=== PATIENT | male | born 1950 | race African-American/Black ===

== ENCOUNTER 2019-02-05 16:48 | Inpatient (IN) | payer OTHER ==
[~2019-02-05] VITALS: Ht 175.3 cm; Wt 62.6 kg
[2019-02-05 16:49] VITALS: BP 127/79
[2019-02-05 17:09] LABS: BASOPHILS 1.1 % (0.0-2.0); EOSINOPHILS 2.2 % (0.0-3.0); HEMATOCRIT 47.6 % (42.0-52.0); HEMOGLOBIN 15.7 gm/dL (14.0-18.0); LYMPHOCYTES 11.6 % (24.0-44.0); MCH 32.9 pg (26.0-34.0); MCHC 32.9 g/dL (28.0-37.0); MONOCYTES 6.5 % (1.0-8.0); PLATELET COUNT 157 thou/uL (150-400); POLYS 78.6 % (36.0-66.0); RBC 4.76 mil/uL (4.50-6.00); RDW 14.5 % (10.5-14.5); WBC 11.4 thou/uL (4.0-11.0)
[2019-02-05 17:15] LABS: BE(vivo) 2.7 mmol/L (-2 to +3); PCO2 56.1 mmHg (35.0-45.0); PO2 57.4 mmHg (80.0-100.0); pH 7.346 (7.360-7.450); sO2 87.9 % (92.0-98.0)
[2019-02-05 18:17] LABS: ANION GAP 7 mmol/L (7-16); BUN 9 mg/dL (7-18); CALCIUM 9.7 mg/dL (8.5-10.1); CHLORIDE 103 mmol/L (98-107); CO2 30 mmol/L (21-32); GLUCOSE 123 mg/dL (74-106); SODIUM 140 mmol/L (136-145)
[2019-02-05 18:27] LABS: ALBUMIN 3.4 g/dL (3.4-5.0); LIPASE 59 U/L (73-393); SGOT 16 U/L (15-37); SGPT 15 U/L (30-65); TOTAL BILIRUBIN 1.1 mg/dL (<0.1-1.0); TOTAL PROTEIN 7.3 g/dL (6.4-8.2); TROPONIN-I <0.06 ng/mL (<0.06)
[2019-02-05 22:20] VITALS: BP 95/65
[2019-02-05 22:45] VITALS: BP 109/68
[2019-02-05 23:05] VITALS: BP 125/81
[2019-02-06 05:14] VITALS: BP 151/86
[2019-02-06 05:53] LABS: MAGNESIUM 2.1 mg/dL (1.8-2.4); PHOSPHORUS 4.6 mg/dL (2.5-4.9)
--- NOTE | 2019-02-06 06:15 | NUR ---
PATIENTS CARES WERE ASSUMED AFTER A TRANSFER FROM THE ER. PATIENT WAS ASSESSED AND ADMITTED. PATIENT WAS PLACED ON CWAL AND HAS A ZERO SCORE AT THIS TIME. STARTED ON THE EVEN HOUR OF 0400. TO FOLLOW FOR THE DAY SHIFT AT 0800. HOURLY ROUNDING WAS DONE.THE PATIENT HAS BEEN ASLEEP MOST OF HIS TIME HERE. THE BED IS IN A LOW AND LOCKED POSITION AND THE BED ALARM IS ON. ALSO THE PATIENT IS IN OUNI200 CLOSE TO THE NURSING STATION.
[2019-02-06 07:19] VITALS: BP 123/79
--- NOTE | 2019-02-06 07:51 | EKG ---
[place] [id number] [facility] [employer] [place] [address] ELECTROCARDIOGRAM REPORT Name: CHANDRAKANT JI Room #: 361-P ADM IN M.R.#: [id number] ������������������ Admission: 02/05/19 ������������������ Attend Phys: Angel Stanley Discharge: ������������������ Date of : 50 Report #: [id number] ����������������������������������������������������������������� [id number] THIS REPORT FOR: //name// [facility] ED Test Date: 2019-02-05 Test Time: 17:01:32 Pat Name: CHANDRAKANT JI Department: Room: 361 Gender: M Instructional Leader: MIGEL : 1950 Requested By: Beth Saleh Order Number: [id number] MD: Baltazar Sung Measurements Intervals Hana Rate: 115 P: 76 ME: 118 QRS: 42 QRSD: 75 T: 89 QT: 316 QTc: 437 Interpretive Statements Sinus tachycardia Right atrial enlargement Nonspecific ST and T wave abnormality No previous ECG available for comparison Electronically Signed On 02-06-2019 7:51:13 CDT by Baltazar Sung [email or web address] ��������������������������������������������� <ELECTRONICALLY SIGNED> ���������������������������������������� By: Baltazar Sung MD, [facility] ��������������������������������������������� 02/06/19 0751 170 00 Baltazar Sung MD, FACC /EPI
[2019-02-06 08:05] LABS: BE(vivo) 2.2 mmol/L (-2 to +3); PCO2 72.8 mmHg (35.0-45.0); PO2 83.8 mmHg (80.0-100.0); pH 7.261 (7.360-7.450); sO2 94.4 % (92.0-98.0)
--- NOTE | 2019-02-06 10:01 | NUR ---
ASSESSMENT: CM REVIEWED CHART AND MET WITH PATIENT AT THE BEDSIDE. PT WAS ADMITTED WITH COPD EXACERBATION. PT REPORTS HE LIVES IN A HOUSE BY HIMSELF. PT REPORTS NO STEPS TO ENTER OR ONCE INSIDE. PT REPORTS THAT HE AMBULATES INDEPENDENTLY AND IS INDEPENDELT WITH ADLS. PT REPORTS THAT HE DOES NOT WEAR OXYGEN AT HOME BUT STATES HE HAS A HOME NEBULIZER. PT REPORTS THAT FAVIOLA COMES TO HIS HOUSE TO HELP HIM WITH COOKING/CLEANING/CHORES/ERRANDS/BATHING. CM SPOKE WITH FAVIOLA [phone] OR [phone] AND SHE STATES SHE WORKS FOR [employer] AND IS A BENEFIT THROUGH HIS MEDICAID. PT REPORTS HE DOES NOT HAVE HOME HEALTH AT THIS TIME AND HAS NOT BEEN TO SNF. CM DISCUSSED ROLE AND WILL CONTINUE TO FOLLOW TO ASSIST NEEDED.
[2019-02-06 12:47] LABS: URINE BILIRUBIN NEGATIVE (Negative); URINE BLOOD NEGATIVE (Negative); URINE CLARITY CLEAR; URINE COLOR YELLOW; URINE GLUCOSE-RANDOM* NEGATIVE (Negative); URINE KETONES NEGATIVE (Negative); URINE LEUKOCYTES NEGATIVE (Negative); URINE NITRITE NEGATIVE (Negative); URINE PROTEIN (DIPSTICK) NEGATIVE (Negative); URINE SPECIFIC GRAVITY 1.015 (1.005-1.035); URINE UROBILINOGEN 0.2 E.U./dl (0.2-1.0)
[2019-02-06 12:55] LABS: AMP/METHAMP Negative (Negative); BARBITURATES Negative (Negative); BENZODIAZEPINES Negative (Negative); COCAINE Negative (Negative); METHADONE Negative (Negative); OPIATES Negative (Negative); PCP Negative (Negative)
[2019-02-06 13:59] LABS: BE(vivo) 2.8 mmol/L (-2 to +3); HCO3 32.1 mmol/L (22.0-26.0); PO2 98.4 mmHg (80.0-100.0); sO2 96.4 % (92.0-98.0)
[2019-02-06 14:03] LABS: PCO2 70.7 mmHg (35.0-45.0); pH 7.275 (7.360-7.450)
[2019-02-06 16:08] VITALS: BP 111/77
--- NOTE | 2019-02-06 18:38 | NUR ---
PT is A&OX3, pt is on o2 3L/min/nc at most of time, but pt has BIPAP about 2-3 hr for abnormal AGB, pt has SOB with activites, pt's vs are stable, pt has a good dinner, pt denies pain at this time, pt has slowly meeting care plan goals.
[2019-02-06 19:48] VITALS: BP 135/84
[2019-02-07 04:34] VITALS: BP 110/68
--- NOTE | 2019-02-07 05:47 | NUR ---
PT ON BIPAP AT HS. KEPT BIPAP ON UNTIL 0545 WHEN PT REQUESTED SOME COFFEE. PUT PT ON 3l NC AND 02 SATS ARE ABOVE 90. PT UPTO BSC WITH X1 OR HE WILL USE URINAL. FLAT EFFECT WITH SLOW RESPONSES. PT STATES NO PAIN OR N/V. FOLLOWING POC WITH IVPB ANTIBIOTICS. HOURLY ROUNDING.
[2019-02-07 07:59] VITALS: BP 123/74
[2019-02-07 09:21] LABS: BE(vivo) 3.7 mmol/L (-2 to +3); HCO3 31.1 mmol/L (22.0-26.0); PCO2 58.5 mmHg (35.0-45.0); PO2 58.9 mmHg (80.0-100.0); pH 7.344 (7.360-7.450); sO2 88.5 % (92.0-98.0)
[2019-02-07 12:01] VITALS: BP 112/72
[2019-02-07 15:38] VITALS: BP 141/80
--- NOTE | 2019-02-07 16:01 | NUR ---
ON-GOING ASSESSMENT: CM REVIEWED CHART. PT WAS UNABLE TO WORK WITH PT TODAY. OT SAW PATIENT AND ARE RECOMMENDING POST ACUTE CARE. CM CONTACTED INSURANCE TO GET A LIST OF SNF FACILITIES THAT ARE IN NETWORK WITH PATIENTS INSURANCE. CM REACHED OUT TO PATIENTS CELINE SHERIDAN AND ALSO SPOKE WITH PATIENTS SISTER AND NOTIFIED THEM OF IN-NETWORK FACILITIES WHICH THEY ARE GOING TO RESEARCH AND GET BACK TO CM.
--- NOTE | 2019-02-07 17:48 | NUR ---
PT ALERT AND ORIENTED TIMES FOUR, VSS, 98%3L, SR ON TELE. PT DENIES PAIN/SOA. PT TOLERATES MEDS AND MEALS. PT UP TO CHAIR FOR SOME PART OF THE SHIFT. PT PROGRESSING TOWRADS POC GOALS
[2019-02-07 20:20] VITALS: BP 130/82
[2019-02-08 03:46] VITALS: BP 117/73
--- NOTE | 2019-02-08 05:40 | NUR ---
PT PROGRESSING TOWARDS DC GOALS BY FOLLOWING POC WITH IVPB ANTIBIOTICS AND USING BIPAP DURING SLEEP. PT SEEMS MORE AWARE OF SITUATION AND SURROUNDINGS. IV IN LFA INFILTRATED AND REPLACED A RFA 22ga. PT KEPT BIPAP ON UNTIL 0500. PT USES URINAL AND USES THE CALL LIGHT WHEN NEEDING HELP. HOURLY ROUNDING.
[2019-02-08 08:09] VITALS: BP 107/72
[2019-02-08 11:41] VITALS: BP 107/68
--- NOTE | 2019-02-08 15:05 | NUR ---
ON-GOING ASSESSMENT: CM REVIEWED CHART AND SPOKE WITH ATTENDING. ATTENDING STATING PATIENT CAN LIKELY DISCHARGE HOME TOMORROW WITH HH INSTEAD OF GOING TO SNF. CM DISCUSSED WITH PT AND HE PREFERS TO GO HOME. CM DISCUSSED HH AND PT IS INTERESTED AND HAS NO PREFERENCE OF AGENCY LONG ITS IN NETWORK WITH HIS INSURANCE. CM SENT REFERRAL TO [facility]. PT REPORTS HE THINKS HE HAS OXYGEN AT HOME AND HAS A LITTLE BOX BUT WHEN CM SPOKE WITH PATIENTS NIECE ARVIN SHE THINKS HE IS CONFUSING OXYGEN WITH HIS NEBULIZER AND STATES NONE OF THE FAMILY THINK HE HAS HOME OXYGEN. CM DISCUSSED WE CAN TEST TO SEE IF HE WILL NEED OXYGEN AT DISCHARGE AND CM WILL CONTINUE TO FOLLOW.
--- NOTE | 2019-02-08 16:03 | NUR ---
PT ALERT AND ORIENTED TIMES FOUR SOMETIMES SLOW TO RESPOND. VSS, 98%3L, SR ON TELE. PT DENIES PAIN/SOA. PT TOLERATES MEDS AND MEALS. FAMILY AT BEDSIDE.PT SLOWLY PROGRESSING TOWRADS POC GOALS.
[2019-02-08 17:48] VITALS: BP 114/72
[2019-02-08 19:55] VITALS: BP 111/65
[2019-02-09 05:10] VITALS: BP 134/85
--- NOTE | 2019-02-09 07:15 | NUR ---
SLEPT MOST OF SHIFT WITH BIPAP ON. UP WITH STANDBY ASSIST. MAINTAIN SAFE ENVIRONMENT. WORKING ON GOALS AND PLAN OF CARE FOR NOC. PROGRESSING TOWARDS DISCHARGE GOALS SLOWLY. DENIES COMPLAINTS OF PAIN OR SHORTNESS OF AIR THIS AM. STATES THAT MACHINE(BIPAP) HELPS. CONTINUE TO ASSES CLOSELY.
[2019-02-09 07:55] VITALS: BP 111/58
[2019-02-09] MEDS ORDERED: PREDNISONE 20 M20 M1 PO (10:17)
[2019-02-09] MEDS ORDERED: LEVAQUIN 500 M500 M2 PO (10:17)
[2019-02-09] MEDS ORDERED: VITAMIN B-1100 M2 PO (10:17)
[2019-02-09] MEDS ORDERED: ALBUTEROL2.5 MG/0.5 INH (10:17)
[2019-02-09] MEDS ORDERED: PRENATAL PO (10:18)
[2019-02-09 12:09] VITALS: BP 110/68
--- NOTE | 2019-02-09 12:45 | NUR ---
Pt began O2 eval on RA; SAT 89%. PT desat to 71% on RA 2L of O2 was applied; increased to 4L; SAT 75%; 6L SAT 78%; 9L SAT 79%. O2 EVAL STOPPED; PT WAS RETURNED TO HIS ROOM AND PLACED ON NC OF 6L RECOVERED AFTER 2 MINUTES ON 4L; RN NOTIFIED OF THE EVENT. O2 EVAL MAR DOCUMENTED. Pt is requiring an O2 Liter flow of greater than 9L during ambulation; 2-4 liters at rest.
--- NOTE | 2019-02-09 13:58 | NUR ---
ON-GOING ASSESSMENT: ALBIN SPOKE WITH [facility] WHO STATES THEY CAN ACCEPT PT IF HE HAS A FOLLOWING PHYSICIAN FOR HH. ALBIN SPOKE WITH ATTENDING AND DR. MUSE WILL FOLLOW FOR HH. CM NOTIFIED JAMAAL AT [facility] INTAKE AND SHE STATES THEY CAN ACCEPT THE PATIENT. SAT EXERCISE WAS ORDERED FOR PATIENT HE MAY REQUIRE HOME OXYGEN, PATIENT IS NEEDING 9L WITH EXERTION. CM NOTIFIED BEDSIDE RN WELL ATTENDING 9L WILL NOT BE ABLE TO BE ARRANGED AT HOME.
[2019-02-09 17:15] VITALS: BP 98/64
--- NOTE | 2019-02-09 18:03 | NUR ---
ASSUMED CARE OF PATIENT AT 0700. PATIENT WAS DUE TO BE DISCHARGED TODAY BUT WHEN WORKING WITH PT HIS OXYGEN LEVELS DESATURATED TO 70'S EVEN ON 9 LITERS NASAL CANNULA. HE DOESN'T WEAR OXYGEN AT ALL AT HOME. PATIENT WAS ALERT AND ORIENTED TODAY. PATIENT DID NOT REPORT ANY PAIN TODAY. PATIENT DID NOT NEED LORAZEPAM FOR ETOH DEPENDENCY TODAY.
[2019-02-09 20:32] VITALS: BP 108/60
--- NOTE | 2019-02-09 22:42 | NUR ---
ASSUMED PT CARE 1899. PT ALERT AND ORIENTED. REASSESSMENT COMPLETE. VSS, TACHY HR. FALL PRECAUTIONS IN PLACE. DENIES PAIN, DENIES N/V. CALL LIGHT AND PERSONAL BELONINGS WITHIN REACH, WILL CONTINUE POC UNTIL EOS.
[2019-02-10 05:15] VITALS: BP 109/63
[2019-02-10 07:37] VITALS: BP 110/62
[2019-02-10 13:55] VITALS: BP 110/62
--- NOTE | 2019-02-10 14:37 | NUR ---
ON-GOING ASSESSMENT: CM REVIEWED CHART AND MET WITH AT THE BEDSIDE. PT HAS ORDERS TO DISCHARGE HOME TODAY WITH HH AND OXYGEN. HH HAS BEEN ARRANGED THROUGH [facility] AND CM NOTIFIED THEM OF DISCHARGE WELL FAXED D/C PAPERWORK. PT HAD NO PREFERENCE OF [facility] AND CM WORKED WITH [employer] WHO DELIVERED PORTABLE OXYGEN TANK. CM SPOKE WITH PATIENT CELINE SHERIDAN TO UPDATE HER AND SHE IS COMING TO TAKE HIM HOME. CM ALSO LEFT [facility] IN PATIENTS ROOM FOR LIFE ALERT. PT REPORTS NO FURTHER QUESTIONS.
--- NOTE | 2019-02-10 16:38 | NUR ---
Patient discharged to home with home health.
[2019-02-11 21:05] LABS: ADENOVIRUS Negative (Negative); INFLUENZA A Negative (Negative); INFLUENZA B Negative (Negative); METAPNEUMOVIRUS Negative (Negative); PARAINFLUENZA 1 Negative (Negative); PARAINFLUENZA 2 Negative (Negative); PARAINFLUENZA 3 Negative (Negative); RHINOVIRUS Positive (Negative); RSV A Negative (Negative); RSV B Negative (Negative)
== END 2019-02-10 16:33 | disposition home health service (06) | DRG 189 ==
LOC: ER 16:48 → EROBS 21:52 → 3W 21:52 → 4S 02-10 14:00 → ENTRNSPT 02-10 15:37 → EDTRNSPTSTS 02-10 15:39 → 4S 02-10 16:33
PROVIDERS: Nurse Practitioner Acute Care; Nurse Practitioner Family; Pediatrics; Physician Assistant; ADMIT Hospitalist
PROC: 5A09357 Assistance with Respiratory Ventilation, Less than 24 Consecutive Hours, Continuous Positive Airway Pressure (ICD-10-PCS; principal; 2019-02-06)
PROC: 5A09357 Assistance with Respiratory Ventilation, Less than 24 Consecutive Hours, Continuous Positive Airway Pressure (ICD-10-PCS; 2019-02-07)
PROC: 5A09357 Assistance with Respiratory Ventilation, Less than 24 Consecutive Hours, Continuous Positive Airway Pressure (ICD-10-PCS; 2019-02-08)
PROC: 5A09357 Assistance with Respiratory Ventilation, Less than 24 Consecutive Hours, Continuous Positive Airway Pressure (ICD-10-PCS; 2019-02-09)
DX: J96.22 Acute and chronic respiratory failure with hypercapnia (principal); E43 Unspecified severe protein-calorie malnutrition; J44.1 Chronic obstructive pulmonary disease with (acute) exacerbation; J96.21 Acute and chronic respiratory failure with hypoxia; I10 Essential (primary) hypertension; F12.90 Cannabis use, unspecified, uncomplicated; F17.210 Nicotine dependence, cigarettes, uncomplicated; J45.909 Unspecified asthma, uncomplicated; Z60.2 Problems related to living alone; J43.9 Emphysema, unspecified; F10.20 Alcohol dependence, uncomplicated; Z71.6 Tobacco abuse counseling; Z68.20 Body mass index [BMI] 20.0-20.9, adult; Z79.899 Other long term (current) drug therapy
CPT/HCPCS: 10879

== ENCOUNTER → 2020-01-01 | Outpatient (CLI) | payer OTHER ==
[~2020-01-01] MED LIST: ALBUTEROL2.5 MG/0.5 INH; LEVAQUIN 500 M500 M2 PO; PREDNISONE 20 M20 M1 PO; PRENATAL PO; VITAMIN B-1100 M2 PO
== END ==
LOC: RAD 10:24
PROVIDERS: ATTEND Pediatrics
DX: J43.9 Emphysema, unspecified (principal)

== ENCOUNTER → 2021-04-21 | Outpatient (CLI) | payer OTHER | LOC: CAT 12:44 | PROVIDERS: ATTEND Pediatrics | DX: Z12.2 Encounter for screening for malignant neoplasm of respiratory organs (principal); Z87.891 Personal history of nicotine dependence ==